=== PATIENT | male | born 1955 | race Caucasian/White ===

== ENCOUNTER 2020-06-03 05:35 | Day surgery (SDC) | payer OTHER ==
[~2020-06-03 05:35] MED LIST: AMLODIPINE BESY10 MG PO; ASPIRIN CHEWABL81 MG PO; ASPIRIN EC81 MG PO; ATORVASTATIN CA40 MG PO; BACLOFEN10 MG PO; COZAAR100 MG PO; HYDROCHLOROTH12.5 MG PO; LASIX40 MG PO; LOVASTATIN20 MG PO; MELOXICAM15 MG PO; METOPROLOL SUCC25 MG PO; OSTEO BI-FLEX1 EAC1 PO; PERCOCET 5-3251 EACH PO; POTABA500 MG PO; VALACYCLOVIR1000 MG PO
[2020-06-03] MEDS ORDERED: PERCOCET 5-3251 EACH PO (06:42)
--- NOTE | 2020-06-03 13:02 | NUR ---
PT LIVES WITH SPOUSE; INDEPENDENT ;PLEASE ADVISE OF DISCHARGE NEEDS
[2020-06-04 06:21] LABS: BASOPHIL 0.1 % (0-2); EOSINOPHIL 0 % (0-5); HCT 33.4 % (42.0-52.0); HGB 11.2 g/dl (13.2-18.0); LYMPHOCYTE 5.2 % (15-48); MCH 31.4 pg (25.0-31.0); MCHC 33.5 g/dL (32.0-36.0); MCV 93.6 fL (78.0-100.0); MONOCYTE 8.2 % (0-12); MPV 9.3 fL (6.0-9.5); NEUTROPHIL 86.1 % (41-80); NRBC 0; PLT 150 K/uL (150-400); RBC 3.57 M/uL (4.70-6.00); RDW 12.4 % (11.5-14.0); WBC 9.6 K/uL (4.0-10.5)
[2020-06-04 06:43] LABS: BUN/CREAT RATIO (CALC) 17.4 RATIO; CREATININE 1.44 mg/dL (0.67-1.17); POTASSIUM 4.8 mmol/L (3.5-5.1)
[2020-06-04] MEDS ORDERED: FEOSOL325 MG PO (08:50)
[2020-06-04] MEDS ORDERED: ASPIRIN CHEWABL81 MG PO (08:50)
--- NOTE | 2020-06-04 11:07 | NUR ---
PT. TO D/C HOME WITH SPOUSE. PT. HAS A ROLLING WALKER. PT. REQUESTED OUTPT. THERAPY AT [facility]. PER JOE CROWE, SHE MADE THE OUTPT APPT FOR 06/05/20 @ 10p:45 A.M. PT. SIGNED THE CHOICE FORM AND COPY GIVEN. AFFLICATIONS EXPLAINED.
== END 2020-06-04 13:11 | disposition home or self-care (01) ==
LOC: FAS 05:35 → FMS 07:45
PROVIDERS: Orthopaedic Surgery
DX: M17.11 Unilateral primary osteoarthritis, right knee (principal); M23.41 Loose body in knee, right knee; I10 Essential (primary) hypertension; I95.9 Hypotension, unspecified; E78.5 Hyperlipidemia, unspecified; I25.10 Atherosclerotic heart disease of native coronary artery without angina pectoris; I25.2 Old myocardial infarction; Z79.82 Long term (current) use of aspirin; Z79.899 Other long term (current) drug therapy; Z95.1 Presence of aortocoronary bypass graft
CPT/HCPCS: 36415; 73560; 80048; 85025; 86850; 86900; 86901; 94010; 94760; 94762; 97110; 97162; 97165; 97530-GP; 97535; C1713; C1776; J0171; J0697; J0735; J1100; J1885; J2250; J2270; J2405; J2704; J2795; J3010; J3475; J7120